=== PATIENT | male | born 1985 | race Caucasian/White ===

== ENCOUNTER 2021-02-02 13:30 | Emergency (ER) | payer OTHER | END 2021-02-02 18:46 | disposition home or self-care (01) | LOC: ER1 13:30 | DX: K59.00 Constipation, unspecified (principal); E03.9 Hypothyroidism, unspecified; F17.200 Nicotine dependence, unspecified, uncomplicated; Z86.19 Personal history of other infectious and parasitic diseases; Z79.899 Other long term (current) drug therapy; Z88.2 Allergy status to sulfonamides | CPT/HCPCS: 84439; 84443; 99283 ==